=== PATIENT | male | born 1940 | race Caucasian/White ===

== ENCOUNTER → 2016-11-19 | Outpatient (CLI) | payer OTHER ==
--- NOTE | 2016-11-19 11:11 | EKG ---
[facility] [place] Measurements Intervals [place] Rate: 71 P: 43 [place]: 197 QRS: 11 QRSD: 89 T: 23 QT: 375 QTc: 398 Interpretive Statements SINUS RHYTHM POSSIBLE RIGHT VENTRICULAR CONDUCTION DELAY NONSPECIFIC ST DEPRESSION No previous ECG available for comparison Electronically Signed On 11-19-16 12:21:16 MST by Ozzie Cedeno [email or web address]
[2016-11-19 15:39] LABS: BILIRUBIN,TOTAL 2.8 mg/dL (0.3-1.2); BUN/CREATININE RATIO 27.5 (6-20); CALCIUM 10.1 mg/dL (8.7-10.7); CREATININE 0.8 mg/dL (0.70-1.50); POTASSIUM 3.9 meq/L (3.8-5.2); TOTAL PROTEIN 7.6 g/dL (6.1-8.0)
== END ==
LOC: LAB 10:39
PROVIDERS: ATTEND Physician Assistant Medical
DX: I10 Essential (primary) hypertension (principal); J43.2 Centrilobular emphysema; I45.89 Other specified conduction disorders
CPT/HCPCS: 80053; 93005; 93010

== ENCOUNTER → 2016-11-25 | Outpatient (CLI) | payer OTHER ==
--- NOTE | 2016-11-25 15:21 | DI ---
PA /LATERAL CHEST X-RAY WITH APICOLORDOTIC VIEW, 11/25/2016 2:40 PM : Clinical History: Centrilobular emphysema. Previous Exam: None at this facility. There is no acute soft tissue or bony abnormality. Heart size is normal. There is no acute infiltrate or effusion and no mass is seen in the lung apices. There is centrilobular emphysema. Mediastinal st ructures are normal. There are no pulmonary nodules. Readin. There is no acute infiltrate or effusion. 2. Centrilobular emphysema. No apical lesion is identified.
--- NOTE | 2016-11-25 16:03 | DI ---
CT HEAD SCAN WITHOUT AND WITH IV CONTRAST, 11/25/2016 2:35 PM : Clinical History: New daily persistent headaches. Previous Exam: None at this facility. Scans are obtained from the foramen magnum to the vertex without and with IV contrast. 50 ml of Isovu e 300 was injected IV. The 4th, 3rd, and lateral ventricles are of normal size, shape, position, and contour for the patient 's age. There are no abnormal areas of increased or decreased density. Specifically, there is no evid ence of an acute hemorrhagic or bland infarct. There are no extracerebral mantles or shift of the mid line structures. There is no cerebral or cerebellar atrophy. Bone window evaluation is normal. The paranasal sinuses are normal. READING: Normal pre-and post contrast CT head scan for this patient's age.
--- NOTE | 2016-11-25 17:32 | DI ---
DUPLEX COLOR DOPPLER CAROTID ULTRASOUND, 11/25/2016 2:35 PM: Clinical History: New daily persistent headaches. Previous Exam: None at this facility. Technique: 2D real time imaging is supplemented with duplex color doppler ultrasound imaging. RIGHT CAROTID ARTERY: 2D real time imaging of the right carotid system shows minimal intimal thickening of the common carot id artery and minimal calcified plaques in the carotid bulb. These plaques extend into the origin of the internal and external carotid arteries. Peak systolic velocities through the right common carotid , the external carotid, and the internal carotid are 119 cm/s, 140 cm/s, and 64 cm/s, respectively. T he values for the common carotid artery and the internal carotid artery correspond to diameter stenos es of 0-49%. The value for the external carotid artery corresponds to a diameter stenosis between 50- 74% but closer to 50%. LEFT CAROTID ARTERY: 2D real time imaging of the left carotid system shows a normal appearance of the common carotid arter y with calcified plaques in the carotid bulb. Noncalcified plaques are present in the distal left int ernal carotid artery. Peak systolic velocities through the left common carotid, the external carotid, and the internal carotid are 111 cm/s, 151 cm/s, and 82 cm/s, respectively. The values for the left common carotid artery and the left internal carotid artery correspond to diameter stenoses of 0-49%. The value for the external carotid artery corresponds to a diameter stenosis between 50-74%, but clos er to 50%. VERTEBRAL ARTERIES: There is antegrade flow through both vertebral arteries Cardiac rhythm is regular. Readin. There is no hemodynamically significant stenosis of either carotid system. 2. There is antegrade flow through both vertebral arteries. Cardiac rhythm is regular.
== END ==
LOC: CT 14:24
PROVIDERS: ATTEND Physician Assistant Medical
DX: G44.52 New daily persistent headache (NDPH) (principal); I10 Essential (primary) hypertension; J43.2 Centrilobular emphysema
CPT/HCPCS: 70470; 71021; 93880

== ENCOUNTER → 2016-11-30 | Outpatient (CLI) | payer OTHER ==
[2016-11-30 15:00] LABS: HEMOGLOBIN A1C 7.28 % (4.2-6.0); MEAN BLOOD GLUCOSE (CALC) 156.424 mg/dL
== END ==
LOC: LAB 11:38
PROVIDERS: ATTEND Physician Assistant Medical
DX: R73.01 Impaired fasting glucose (principal)
CPT/HCPCS: 83036

== ENCOUNTER → 2017-03-02 | Outpatient (CLI) | payer OTHER ==
[2017-03-02 14:29] LABS: BASOPHILS # (AUTO) 0.05 10*3/UL; BASOPHILS % (AUTO) 0.9 % (0-1); EOSINOPHILS % (AUTO) 3.7 % (0-8); HEMATOCRIT 52.9 % (42.0-52.0); HEMOGLOBIN 17.9 g/dL (14.0-18.0); LYMPHOCYTES # (AUTO) 2.25 10*3/uL; MEAN CORPUSCULAR HEMOGLOBIN 29.7 PG (27-31); MEAN CORPUSCULAR HGB CONC 33.8 g/dL (33-37); MEAN CORPUSCULAR VOLUME 87.9 FL (80-90); MONOCYTES % (AUTO) 11.2 % (5-15); NEUTROPHILS # (AUTO) 2.27 10*3/UL; NEUTROPHILS % (AUTO) 42.2 % (50-80); RED BLOOD COUNT 6.02 10^6/uL (4.70-6.10)
[2017-03-02 14:32] LABS: PLATELET MORPHOLOGY COMMENT NORMAL MORPHOLOGY (NORM); RBC MORPHOLOGY COMMENT NORMAL MORPHOLOGY (NORM); WBC MORPHOLOGY COMMENT NORMAL MORPHOLOGY (NORM)
[2017-03-02 14:37] LABS: CHOL/HDL RATIO 2.54 RATIO (0-4.0); LDL CHOLESTEROL,CALCULATED 76.4 mg/dL
[2017-03-02 14:38] LABS: BUN/CREATININE RATIO 21.11 (6-20); CALCIUM 9.9 mg/dL (8.7-10.7); SERUM ALBUMIN 4.4 g/dL (3.5-4.8)
== END ==
LOC: LAB 09:03
PROVIDERS: ATTEND Physician Assistant Medical
DX: E11.9 Type 2 diabetes mellitus without complications (principal); D47.3 Essential (hemorrhagic) thrombocythemia; I10 Essential (primary) hypertension; Z12.5 Encounter for screening for malignant neoplasm of prostate
CPT/HCPCS: 80053; 80061; 82607; 83036; 84443; 85025; G0103